=== PATIENT | male | born 1955 | race Caucasian/White ===

== ENCOUNTER 2018-02-07 08:22 | Emergency (ER) | payer BC ==
[2018-02-07 08:52] VITALS: BP 133/81
--- NOTE | 2018-02-07 09:59 | UC ---
Lower Extremity/Ankle HPI - HPI Summary HPI Summary: 62 yo male presents with RIGHT heel pain for the last 2 days. He tells me that after working a long day 2 days ago, he noticed some mild pain to his right heel and some swelling in the area. Now has mild pain when walking as the day progresses and swelling is still present. Has been elevating and icing, which helps. Denies injury, numbness, or tingling. - History of Current Complaint Chief Complaint: UCLowerExtremity Stated Complaint: RIGHT ANKLE PAIN Time Seen by Provider: 02/07/18 09:58 Hx Obtained From: Patient Onset/Duration: Sudden Onset Severity Initially: Mild Severity Currently: Mild Pain Intensity: 4 Pain Scale Used: 0-10 Numeric Aggravating Factor(s): Standing, Ambulation Alleviating Factor(s): Rest, Elevation Able to Bear Weight: Yes - Allergies/Home Medications Allergies/Adverse Reactions: Allergies Allergy/AdvReac Type Severity Reaction Status Date / Time No Known Allergies Allergy Verified 02/07/18 08:41 Home Medications: Home Medications Fexofenadine (NF) [Nati 180 (NF)] 180 mg PO DAILY 02/07/18 [History Confirmed 02/07/18] Fluticasone NASAL SPRAY 50MCG* [Flonase NASAL SPRAY 50MCG*] 2 spray BOTH NARES DAILY 02/07/18 [History Confirmed 02/07/18] Hydrocodone/Acetaminophen [Hydrocodone Bitartrate/AC] 1 tab PO BID PRN 02/07/18 [History Confirmed 02/07/18] Omeprazole CAP* [Prilosec CAP* 20 MG] 20 mg PO DAILY 02/07/18 [History Confirmed 02/07/18] Piroxicam CAP* [Feldene CAP*] 20 mg PO DAILY 02/07/18 [History Confirmed ] PMH/Surg Hx/FS Hx/Imm Hx GI/ History: Gastroesophageal Reflux - Surgical History Surgical History: Yes Surgery Procedure, Year, and Place: finger. L3 and L4 fusion. T&A - Family History Known Family History: Positive: None - Social History Occupation: Employed Full-time Lives: With Family Alcohol Use: None Substance Use Type: Prescribed Smoking Status (MU): Never Smoked Tobacco Review of Systems Constitutional: Negative Skin: Negative Respiratory: Negative Cardiovascular: Negative Musculoskeletal: Other: - Right heel pain Neurological: Negative Psychological: Negative All Other Systems Reviewed And Are Negative: Yes Physical Exam - Summary Physical Exam Summary: GENERAL: NAD. WDWN. No pain distress. SKIN: No rashes, sores, lesions, or open wounds. CHEST: No accessory muscle use. Breathing comfortably and in no distress. CV: Pulses intact PT and DP. Cap refill <2seconds MSK: RIGHT ankle/foot: NTTP. Mild edema inferior medial malleolus. FROM without pain. Strength 5/5. Negative talar tilt. No increased laxity. Negative Guaman s test. NEURO: Alert. Sensations intact and symmetric B/L LEs PSYCH: Age appropriate behavior. Triage Information Reviewed: Yes Vital Signs: Initial Vital Signs Temp 98.2 F 02/07/18 08:47 Pulse 86 02/07/18 08:47 Resp 15 02/07/18 08:47 BP 133/81 02/07/18 08:47 Pulse Ox 99 02/07/18 08:47 Vital Signs Reviewed: Yes Lower Extremity Course/Dx - Course Course Of Treatment: Right achilles tendinitis. Offerred walking boot or post- op shoe, but pt declined. Elected to continue RICE, ibuprofen, and f/u with Ortho if needed. - Differential Dx/Diagnosis Provider Diagnoses: Right foot pain Discharge - Sign-Out/Discharge Documenting (check all that apply): Patient Departure All imaging exams completed and their final reports reviewed: No Studies - Discharge Plan Condition: Stable Disposition: HOME Patient Education Materials: Tendinitis (ED) Referrals: Aline Calix MD [Primary Care Provider] - Eduar Gallardo MD [Medical Doctor] - If Needed Additional Instructions: If you develop a fever, shortness of breath, chest pain, new or worsening symptoms - please call your PCP or go to the ED. 1) Rest, Ice, and elevate your ankle as much as possible 2) If your symptoms persist or worsen - please call Orthopedics at the number below to schedule a follow up appointment - Billing Disposition and Condition Condition: STABLE Disposition: Home - Attestation Statements Provider Attestation: I was available for consult. This patient was seen by the EDDIE. The patient was not presented to, seen by, or examined by me. -Jackie
== END 2018-02-07 10:11 | disposition home or self-care (01) ==
LOC: UCCORT 08:22
DX: M79.671 Pain in right foot (principal); X50.3XXA Overexertion from repetitive movements, initial encounter; Y93.01 Activity, walking, marching and hiking; Y92.89 Other specified places as the place of occurrence of the external cause; Y99.0 Civilian activity done for income or pay; K21.9 Gastro-esophageal reflux disease without esophagitis
CPT/HCPCS: 99211; G0463

== ENCOUNTER 2019-03-12 12:34 | Emergency (ER) | payer BC ==
[2019-03-12 12:56] VITALS: BP 120/89
--- NOTE | 2019-03-12 13:15 | UC ---
Respiratory Complaint HPI - HPI Summary HPI Summary: Pt presents with c/o cough that worsens in recumbent position X 10 days. - History of Current Complaint Chief Complaint: UCGeneralIllness Stated Complaint: COUGH Time Seen by Provider: 03/12/19 13:10 Hx Obtained From: Patient Onset/Duration: Gradual Onset, Lasting Days, Still Present, Worse Since - onset Timing: Intermittent Episodes Severity Initially: Mild Severity Currently: Moderate Pain Intensity: 0 Character: Cough: Productive Aggravating Factors: Deep Breaths, Recumbent Position Alleviating Factors: Nothing Associated Signs And Symptoms: Positive: Wheezing, URI, Nasal Congestion - Risk Factors Pulmonary Embolism Risk Factors: Negative Cardiac Risk Factors: Negative Pseudomonas Risk Factors: Negative Tuberculosis Risk Factors: Negative - Allergies/Home Medications Allergies/Adverse Reactions: Allergies Allergy/AdvReac Type Severity Reaction Status Date / Time No Known Allergies Allergy Verified 03/12/19 12:56 PMH/Surg Hx/FS Hx/Imm Hx Previously Healthy: Yes Respiratory History: Asthma - Surgical History Surgical History: Yes Surgery Procedure, Year, and Place: Left pinky finger. L3 and L4 fusion. T&A - Family History Known Family History: Positive: Cardiac Disease - Social History Occupation: Employed Full-time Lives: With Family Alcohol Use: None Substance Use Type: None Smoking Status (MU): Never Smoked Tobacco Have You Smoked in the Last Year: No - Immunization History Vaccination Up to Date: Yes Review of Systems All Other Systems Reviewed And Are Negative: Yes Constitutional: Positive: Chills, Fatigue Skin: Positive: Negative Eyes: Positive: Negative ENT: Positive: Negative Respiratory: Positive: Cough Cardiovascular: Positive: Negative Gastrointestinal: Positive: Negative Genitourinary: Positive: Negative Motor: Positive: Negative Neurovascular: Positive: Negative Musculoskeletal: Positive: Myalgia Neurological: Positive: Headache Psychological: Positive: Negative Is Patient Immunocompromised?: No Physical Exam Triage Information Reviewed: Yes Appearance: Well-Appearing Vital Signs: Initial Vital Signs Temp 97.7 F 03/12/19 12:53 Pulse 80 03/12/19 12:53 Resp 18 03/12/19 12:53 BP 120/89 03/12/19 12:53 Pulse Ox 97 03/12/19 12:53 Vital Signs Reviewed: Yes Eye Exam: Normal ENT: Positive: Nasal congestion Dental Exam: Normal Neck exam: Normal Respiratory: Positive: Decreased breath sounds Cardiovascular Exam: Normal Musculoskeletal Exam: Normal Neurological Exam: Normal Psychological Exam: Normal Skin Exam: Normal Respiratory Course/Dx - Course Course Of Treatment: We discussed bacterial vs viral pt stated his cough had been worse over the last few days, and given his hx of asthma we decided to treat with antibiotics. - Differential Dx/Diagnosis Differential Diagnosis/HQI/PQRI: Bronchitis, Influenza Provider Diagnosis: Bronchitis Discharge ED - Sign-Out/Discharge Documenting (check all that apply): Patient Departure All imaging exams completed and their final reports reviewed: No Studies - Discharge Plan Condition: Stable Disposition: HOME Prescriptions: Albuterol HFA INHALER* [Ventolin HFA Inhaler*] 1 - 2 puff INH Q4H PRN #1 mdi PRN Reason: cough, wheeze Azithromycin TAB* [Zithromax TAB (Z-CHRIS) 250 mg #6 tabs] 2 tab PO .TODAY, THEN 1 DAILY #1 chris Benzonatate CAP* [Tessalon 100 MG CAP*] 200 mg PO Q8H PRN #30 cap PRN Reason: Cough Patient Education Materials: Acute Bronchitis (ED) Referrals: Aline Calix MD [Primary Care Provider] - If Needed - Billing Disposition and Condition Condition: STABLE Disposition: Home
== END 2019-03-12 13:25 | disposition home or self-care (01) ==
LOC: UCCORT 12:34
DX: J45.909 Unspecified asthma, uncomplicated (principal)
CPT/HCPCS: 99212; G0463

== ENCOUNTER 2019-03-23 14:05 | Emergency (ER) | payer BC ==
[2019-03-23 14:55] VITALS: BP 128/83
--- NOTE | 2019-03-23 15:54 | UC ---
Respiratory Complaint HPI - HPI Summary HPI Summary: 63-year-old male who was diagnosed with bronchitis and pneumonia on March 12. He was put on a Z-David and an inhaler. He states that he feels better and he is getting better rest at night he continues to have some postnasal drainage but he states he's not quite back to normal. - History of Current Complaint Chief Complaint: UCRespiratory Stated Complaint: CHEST CONGESTION Time Seen by Provider: 03/23/19 14:57 Hx Obtained From: Patient Onset/Duration: Gradual Onset Timing: Intermittent Episodes Severity Initially: Moderate Severity Currently: Mild Pain Intensity: 0 Character: Cough: Nonproductive Aggravating Factors: Nothing Alleviating Factors: Other - Patient was on a Z-David and an albuterol inhaler with improvement. Associated Signs And Symptoms: Positive: Negative - Allergies/Home Medications Allergies/Adverse Reactions: Allergies Allergy/AdvReac Type Severity Reaction Status Date / Time No Known Allergies Allergy Verified 03/23/19 14:56 PMH/Surg Hx/FS Hx/Imm Hx Previously Healthy: Yes Respiratory History: Asthma - Surgical History Surgical History: Yes Surgery Procedure, Year, and Place: Left pinky finger. L3 and L4 fusion. T&A - Family History Known Family History: Positive: None, Cardiac Disease - Social History Alcohol Use: None Substance Use Type: None Smoking Status (MU): Never Smoked Tobacco Have You Smoked in the Last Year: No - Immunization History Vaccination Up to Date: Yes Review of Systems All Other Systems Reviewed And Are Negative: Yes ENT: Positive: Other - Occasional postnasal drainage. Respiratory: Positive: Cough - Nonproductive cough however he does feel better and feels as though everything has improved. Is Patient Immunocompromised?: No Physical Exam Triage Information Reviewed: Yes Appearance: Well-Appearing, No Pain Distress, Well-Nourished Vital Signs: Initial Vital Signs Temp 98.2 F 03/23/19 14:51 Pulse 81 03/23/19 14:51 Resp 16 03/23/19 14:51 BP 128/83 03/23/19 14:51 Pulse Ox 98 03/23/19 14:51 Vital Signs Reviewed: Yes Eyes: Positive: Conjunctiva Clear ENT: Positive: Pharynx normal, Nasal drainage - Mild white postnasal drainage., TMs normal, Uvula midline Neck: Positive: Supple, Nontender, No Lymphadenopathy Respiratory: Positive: Lungs clear, Normal breath sounds, No respiratory distress, No accessory muscle use Cardiovascular: Positive: RRR, No Murmur, Pulses Normal, Brisk Capillary Refill Musculoskeletal Exam: Normal Neurological Exam: Normal Psychological Exam: Normal Skin Exam: Normal Respiratory Course/Dx - Course Course Of Treatment: I gave the patient the option of a chest x-ray since he stated he wasn't feeling quite back to normal however he opted not to have a chest x-ray since his lungs were clear. He is to follow-up with his primary care provider as needed for any worsening symptoms. - Differential Dx/Diagnosis Provider Diagnosis: Bronchitis Discharge ED - Sign-Out/Discharge Documenting (check all that apply): Patient Departure All imaging exams completed and their final reports reviewed: No Studies - Discharge Plan Condition: Good Disposition: HOME Patient Education Materials: Postnasal Drip (DC) Referrals: Aline Calix MD [Primary Care Provider] - Additional Instructions: Increase fluids, follow-up with your primary care provider as needed if any worsening symptoms. - Billing Disposition and Condition Condition: GOOD Disposition: Home
== END 2019-03-23 15:57 | disposition home or self-care (01) ==
LOC: UCCORT 14:05
DX: J45.909 Unspecified asthma, uncomplicated (principal)
CPT/HCPCS: 99211; G0463